=== PATIENT | female | born 1945 | race Caucasian/White ===

== ENCOUNTER 2023-06-10 12:00 | Emergency (ER) | payer MEDICAID, MEDICARE ==
[~2023-06-10] VITALS: Ht 157.5 cm; Wt 62.7 kg
[~2023-06-10 12:00] MED LIST: PHEN-786 PO
[2023-06-10 12:10] VITALS: BP 156/82; PULSE 77; RESP 18; O2SAT 96
[2023-06-10] MEDS ORDERED: ibuprofen tablet 400 MG TABLET PO ONE (15:30)
[2023-06-10 15:45] VITALS: TEMP 97.8
--- NOTE | 2023-06-10 16:56 | NUR ---
PT LEFT ED AMA AND SIGNED FORM. PT REFUSED FOR RN TO ATTEMPT TO TAKE MORE VS. RN NOTIFIED DR REYES.
[2023-06-10] MEDS ORDERED: ACET1TAB96 PO (17:54)
== END 2023-06-10 17:01 | disposition home or self-care (01) ==
LOC: ER 12:00
DX: S22.42XA Multiple fractures of ribs, left side, initial encounter for closed fracture (principal); Z79.1 Long term (current) use of non-steroidal anti-inflammatories (NSAID); W19.XXXA Unspecified fall, initial encounter; Y93.89 Activity, other specified; Y92.89 Other specified places as the place of occurrence of the external cause; Y99.8 Other external cause status
CPT/HCPCS: 71250; 99284